=== PATIENT | male | born 1950 | race Caucasian/White ===

== ENCOUNTER → 2017-08-14 | Outpatient (CLI) | payer MEDICARE, BC ==
--- NOTE | 2017-08-14 15:39 | RAD ---
Indication: Screening for osteoporosis. Vitamin D deficiency. Osteopenia. Patient is a 67-year-old male. Comparison: None available. Bone Density: -BMD: (g/cm2) - AP Spine Total (L1-L4).......... 1.284. - Total left Hip................. 1.202. Neck: 1.040. T-Score: - AP Spine Total (L1-L4)......... 0.5. - Total left Hip................. 0.7. Neck: -0.2 Z-Score: - AP Spine Total (L1-L4).......... 0.3. - Total left Hip................. 0.8. Neck: 0.4 World Health Organization criteria for BMD interpretation classify patients as Normal (T-score at or above -1.0), Osteopenic (T-score between -1.0 and -2.5), or Osteoporotic (T-score at or below -2.5). Impression: 1. AP Spine Total L1-L4---normal.. 2. Total left Hip---normal..
== END | disposition home or self-care (01) ==
LOC: DXRAD 12:38
PROVIDERS: ATTEND Family Medicine
DX: E55.9 Vitamin D deficiency, unspecified (principal); M85.88 Other specified disorders of bone density and structure, other site
CPT/HCPCS: 77080

== ENCOUNTER → 2018-03-26 | Outpatient (CLI) | payer MEDICARE, BC ==
--- NOTE | 2018-03-26 13:27 | RAD ---
Lumbar spine and right hip radiograph 03/26/2018 INDICATION: Low back and right hip pain status post fall in August. COMPARISON: CT abdomen/pelvis November 28, 2012. TECHNIQUE: 5 views of the lumbosacral spine, AP view the pelvis and 2 dedicated views the right hip are provided. FINDINGS: There are 5 nonrib-bearing lumbar type vertebral bodies. Vertebral body heights are maintained. There is minimal retrolisthesis of L3 on L4 and L4 on L5. No definite pars interarticularis defect is visualized. Transverse processes are intact. There is mild disc height loss at L1-L2 and L2-L3 and L4-L5. There is moderate to advanced facet arthropathy lower lumbar spine. Mild to moderate anterior marginal osteophytosis is present, most prominent at T12-L1, L4-L5 and L5-S1. The pelvis is intact. Sacroiliac joints are well aligned. Pubic symphysis is well aligned. Phleboliths are identified within the pelvis. There is a nonobstructive bowel gas pattern. Pelvic ring is intact. Acetabula and superior and inferior pubic rami are intact. There is advanced joint space narrowing involving the right femoral acetabular joint with subcortical sclerosis and remodeling of the femoral head. There is large marginal osteophytosis. No acute fracture is visualized. There is mild joint space narrowing and subchondral sclerosis involving the left hip. IMPRESSION: 1. There is minimal retrolisthesis of L3 on L4 and L4 on L5. Mild to moderate degenerative disc disease of the lumbar spine is present. There is no acute fracture. 2. There is advanced osteoarthrosis of the right hip. There is mild osteoarthrosis of the left hip. No acute fracture, however there is remodeling of the femoral head with increased sclerosis and mild flattening. Correlation with cross-sectional imaging may be of benefit as differential consideration includes osteonecrosis. Electronically signed by: Iamni Chacon MD (03/26/2018 1:24 PM) [id number]
== END | disposition home or self-care (01) ==
LOC: PMG 10:50
PROVIDERS: ATTEND Family Medicine
DX: M51.36 Other intervertebral disc degeneration, lumbar region (principal); M16.11 Unilateral primary osteoarthritis, right hip; I87.8 Other specified disorders of veins; E55.9 Vitamin D deficiency, unspecified
CPT/HCPCS: 72110; 73502

== ENCOUNTER → 2020-07-06 | Outpatient (CLI) | payer MEDICARE, BC | LOC: LAB 12:16 | DX: Z20.828 Contact with and (suspected) exposure to other viral communicable diseases (principal); B97.29 Other coronavirus as the cause of diseases classified elsewhere; R05 Cough | CPT/HCPCS: U0003 ==